=== PATIENT | female | born 1960 | race Caucasian/White ===

== ENCOUNTER 2016-04-15 11:50 | Emergency (ER) | payer MEDICARE ==
[2016-04-15 12:03] VITALS: TEMP 98.6; BMI 35.4
[2016-04-15] MEDS ORDERED: SODIUM CHLORIDE 0.9% 10 ML FLUSH FLUSH PRN (12:05)
[2016-04-15] MEDS ORDERED: NS 1,000 ML IV ONE (12:05)
[2016-04-15] MEDS ORDERED: Albuterol/Ipratropium Neb 3 ML NEB NEB ONE (12:07)
[2016-04-15] MEDS ORDERED: METHYLPREDNISOLONE 125 MG/2 ML VIAL IV ONE (12:07)
--- NOTE | 2016-04-15 12:08 | EDPRACDOC ---
- General Information Chief Complaint: Chest Pain Stated Complaint: CHEST PAIN Time Seen by Provider: 04/15/16 11:57 Information Source: Patient Mode Of Arrival: Ambulance Home Medications: Home Medications Albuterol Sulfate [Proventil, Ventolin] 2.5 mg NEB Q4-6H PRN 04/15/16 Aspirin [Adult Low Dose Aspirin EC] 81 mg PO DAILY 04/15/16 Ciprofloxacin HCl [Cipro] 500 mg PO BID #14 tab 04/15/16 Ipratropium [place] 0.2 mg NEB QID PRN 04/15/16 Lisinopril [Prinivil] 20 mg PO HS 04/15/16 Lorazepam [Ativan] 1 mg PO DAILY PRN 04/15/16 Lovastatin 40 mg PO HS 04/15/16 Prednisone [Deltasone, Orasone] 20 mg PO DAILY #20 tab 04/15/16 Quetiapine Fumarate [Seroquel] 300 mg PO DAILY 04/15/16 Allergies/Adverse Reactions: Allergies Allergy/AdvReac Type Severity Reaction Status Date / Time codeine Allergy Itching Verified 04/15/16 12:03 Penicillins Allergy Unknown Verified 04/15/16 12:03 - History of Present Illness Onset: YEST Exact Onset of Symptoms: Unknown HPI: Pt presents to ED for confusion x 2-3 days, cough, cp. states hx bipolar. Pt answers "i don't know" to the majority of questions. Symptoms began: Gradually Duration: Since Onset Symptoms Currently: Reports: Worsened Altered Quality: Reports: Confusion Altered Severity: Reports: Moderate Associated signs and symptoms: Reports: Chest pain - Treatment Prior to ED Arrival Reported Medications/Treatment [employer] EMS Treatment BLS IV No ED Past Medical History - History Reviewed Yes Nurses notes reviewed and agree except as marked - Patient Medical History Cardiac History: Reports: Hypertension, Hypercholesterolemia Surgical History: Reports: Hysterectomy - Social Medical History Smoking Status: Current status unknown EDM Review of Systems - Review of Systems ROS Unobtainable: Yes Hx Limited due to age/level of understanding of patient Respiratory: Cough Cardiovascular: Chest Pain - Physical Exam Constitutional: Alert, Confused Oriented to: Person Last recorded Vital Signs: Last Vital Signs Temp 98.6 F 04/15/16 11:58 Pulse 108 04/15/16 11:58 Resp 20 04/15/16 11:58 BP 198/99 H 04/15/16 11:58 Pulse Ox 90 L 04/15/16 11:58 Oxygen Pulse Oxygen Saturation 90 O2 Device Oxygen Flow Rate Fraction of Inspired Oxygen ( FIO2) - HEENT Head: Normal ( normocephalic) Eye Exam: Normal (PERRL, EOMI, Sclera white) Oropharynx: Normal (Pharynx:Moist without exudate,Gums-no swelling) Tympanic Membrane: Normal ENT EAC: Normal Nose: No Symptoms Reported (septum midline) Neck: Normal (FROM, trachea at midline) - Respiratory/Cardiovascular Respiratory: Wheezes Cardiovascular: Tachycardia - GI Auscultation: Normal (NABS) Palpation: Normal (Soft,No rebound or guarding, non distended) Tenderness: Non tender - Musculoskeletal Back: Normal (Non-Tender) Extremities: Normal (Normal tone, Pulses 2+ No cyanosis or edema, FROM) - Integumentary Skin: Normal, Warm, Dry Lymphatics: Normal (no adenopathy) - Neurologic Memory Impaired: Short-term Motor Function: Normal (Normal tone, Pulses 2+ No cyanosis or edema, FROM) - Differential Diagnosis Dehydration, Hypoxemia, CVA, Sepsis, UTI, Other (PNA) - Results 04/15/16 12:00 04/15/16 12:00 04/15/16 15:51 Laboratory Results - last 24 hr 04/15/16 04/15/16 04/15/16 12:00 12:00 12:00 WBC 6.2 RBC 4.94 Hgb 14.2 Hct 41.8 MCV 85 MCH 28.8 MCHC 34.0 RDW 13.0 Plt Count 178 MPV 9.6 Neut % (Auto) 74.7 Lymph % (Auto) 15.0 L [place] % (Auto) 9.9 Eos % (Auto) 0.1 Baso % (Auto) 0.3 Absolute Neuts (auto) 4.59 Absolute Lymphs (auto) 0.93 PT INR APTT Puncture Site pH pCO2 pO2 HCO3 Total CO2 Base Excess FiO2 % Specimen Drawn By Sodium 139 Potassium 4.4 Chloride 101 Carbon Dioxide 26 Anion Gap 16 BUN 11 Creatinine 0.60 Estimated GFR (MDRD) > 60 Glucose 105 H Calculated Osmolality 267 L Lactic Acid 0.9 Calcium 9.6 Total Bilirubin 0.6 AST 29 ALT 40 Alkaline Phosphatase 85 Creatine Kinase 96 Troponin I < 0.01 [id number] Pept 52 Total Protein 7.3 Albumin 4.5 Urine Color Urine Clarity Urine pH Ur Specific [place] Urine Protein Urine Glucose (UA) Urine Ketones Urine Occult Blood Urine Nitrite Urine Bilirubin Urine Urobilinogen Ur Leukocyte Esterase Urine RBC Urine WBC Ur Epithelial Cells Urine Bacteria Urine Mucus Urine Opiates Screen Ur Oxycodone Screen Urine Methadone Screen Ur Barbiturates Screen Ur Tricyclics Screen Ur Phencyclidine Scrn Ur Amphetamines Screen U Methamphetamines Scrn Urine MDMA Screen U Benzodiazepines Scrn Urine Cocaine Screen Ur THC Screen 04/15/16 04/15/16 04/15/16 12:00 12:20 12:20 WBC RBC Hgb Hct MCV MCH MCHC RDW Plt Count MPV Neut % (Auto) Lymph % (Auto) [place] % (Auto) Eos % (Auto) Baso % (Auto) Absolute Neuts (auto) Absolute Lymphs (auto) PT 10.8 INR 1.1 APTT 29.1 Puncture Site pH pCO2 pO2 HCO3 Total CO2 Base Excess FiO2 % Specimen Drawn By Sodium Potassium Chloride Carbon Dioxide Anion Gap BUN Creatinine Estimated GFR (MDRD) Glucose Calculated Osmolality Lactic Acid Calcium Total Bilirubin AST ALT Alkaline Phosphatase Creatine Kinase Troponin I [id number] Pept Total Protein Albumin Urine Color Yellow Urine Clarity Clear Urine pH 6.0 Ur Specific [place] 1.010 Urine Protein Neg Urine Glucose (UA) Neg Urine Ketones 1+ H Urine Occult Blood Neg Urine Nitrite Neg Urine Bilirubin Neg Urine Urobilinogen <2.0 Ur Leukocyte Esterase 2+ H Urine RBC 2-5 Urine WBC 10-20 H Ur Epithelial Cells 1+ Urine Bacteria Few Urine Mucus Occ Urine Opiates Screen Neg Ur Oxycodone Screen Neg Urine Methadone Screen Neg Ur Barbiturates Screen Neg Ur Tricyclics Screen Neg Ur Phencyclidine Scrn Neg Ur Amphetamines Screen Neg U Methamphetamines Scrn Neg Urine MDMA Screen Neg U Benzodiazepines Scrn *positive* H Urine Cocaine Screen Neg Ur THC Screen Neg 04/15/16 12:40 WBC RBC Hgb Hct MCV MCH MCHC RDW Plt Count MPV Neut % (Auto) Lymph % (Auto) [place] % (Auto) Eos % (Auto) Baso % (Auto) Absolute Neuts (auto) Absolute Lymphs (auto) PT INR APTT Puncture Site Right radial pH 7.460 H pCO2 39.0 pO2 67.0 L HCO3 27.7 H Total CO2 28.9 H Base Excess 3.7 H FiO2 % 0.21 Specimen Drawn By Belja Sodium Potassium Chloride Carbon Dioxide Anion Gap BUN Creatinine Estimated GFR (MDRD) Glucose Calculated Osmolality Lactic Acid Calcium Total Bilirubin AST ALT Alkaline Phosphatase Creatine Kinase Troponin I [id number] Pept Total Protein Albumin Urine Color Urine Clarity Urine pH Ur Specific [place] Urine Protein Urine Glucose (UA) Urine Ketones Urine Occult Blood Urine Nitrite Urine Bilirubin Urine Urobilinogen Ur Leukocyte Esterase Urine RBC Urine WBC Ur Epithelial Cells Urine Bacteria Urine Mucus Urine Opiates Screen Ur Oxycodone Screen Urine Methadone Screen Ur Barbiturates Screen Ur Tricyclics Screen Ur Phencyclidine Scrn Ur Amphetamines Screen U Methamphetamines Scrn Urine MDMA Screen U Benzodiazepines Scrn Urine Cocaine Screen Ur THC Screen - EKG EKG #1 EKG Time: 12:01 Rate: bpm: 107 [place]: Normal Rhythm: ST Block: None ST: Nonsp - Diagnostic Imaging Head Image interpreted by: Radiologist IMPRESSION: No intracranial mass, hemorrhage, or focal broussard - white compartment lesions/acute appearing infarct. Chest Image interpreted by: Radiologist IMPRESSION: Negative one-view chest x-ray - Additional Information Additional Information: Pt wears O2 at home. Pt discussed with tomasa Dwyer to d/c home. Decision Time to Discharge: 16:12 - Departure Disposition: Home Condition: Stable Final Diagnosis: COPD exacerbation, Hypoxia UTI (urinary tract infection) Qualifiers: Urinary tract infection type: acute cystitis Hematuria presence: without hematuria Qualified Code(s): N30.00 - Acute cystitis without hematuria Altered mental status Qualifiers: Altered mental status type: transient alteration of awareness Qualified Code(s) : R40.4 - Transient alteration of awareness Instructions: Chest Pain (ED), Urinary Tract Infection in Women (ED), COPD ( Chronic Obstructive Pulmonary Disease) (ED), Dysuria Education/Counseling Given To: Patient Education/Counseling Given Regarding: Diagnosis, Treatment, Follow Up Referrals: None,No Provider [NonStaff] - One Week Jean Kulkarni II, MD [Staff Physician] - One Week Prescriptions: New Ciprofloxacin HCl [Cipro] 500 mg PO BID #14 tab Prednisone [Deltasone, Orasone] 20 mg PO DAILY #20 tab No Action Aspirin [Adult Low Dose Aspirin EC] 81 mg PO DAILY Ipratropium [place] 0.2 mg NEB QID PRN PRN Reason: Shortness Of Breath Lovastatin 40 mg PO HS Lisinopril [Prinivil] 20 mg PO HS Albuterol Sulfate [Proventil, Ventolin] 2.5 mg NEB Q4-6H PRN PRN Reason: Shortness Of Breath Lorazepam [Ativan] 1 mg PO DAILY PRN PRN Reason: Anxiety Quetiapine Fumarate [Seroquel] 300 mg PO DAILY Additional Instructions: Increase fluids. Return for worse or different symptoms.
[2016-04-15 12:29] LABS: ALL NEG? NO
[2016-04-15 12:39] LABS: LEUKOCYTES/URINE 2+ (NEGATIVE); NITRITE/URINE NEG (NEGATIVE); URINE OCCULT BLOOD NEG (NEG/TRACE)
[2016-04-15 12:43] LABS: MDMA* NEG (NEGATIVE); METHAMPHETAMINES NEG (NEGATIVE); OXYCODONE NEG (NEGATIVE)
[2016-04-15 12:45] LABS: ABG Draw Site Right Radial; ALLEN'S TEST PASS; BEb 3.7 (+/- 2); TCO2 28.9 MMOL/L (23-27)
[2016-04-15 13:05] LABS: AUTOMATED BASOPHIL 0.3 % (0-2); AUTOMATED EOSINOPHIL 0.1 % (0-5); AUTOMATED MONOCYTE 9.9 % (3-10); AUTOMATED NEUTROPHIL 74.7 % (45-76); MPV 9.6 fL (7.4-10.4)
--- NOTE | 2016-04-15 13:10 | DIRPT ---
CLINICAL DATA: Altered mental status/ confusion for 2 days EXAM: CT HEAD WITHOUT CONTRAST TECHNIQUE: Contiguous axial images were obtained from the base of the skull through the vertex without intravenous contrast. COMPARISON: None. FINDINGS: The ventricles are normal in size and configuration. There is no intracranial mass, hemorrhage, extra-axial fluid collection, or midline shift. The broussard-white compartments are normal. No acute infarct is evident. The bony calvarium appears intact. Mastoid air cells are hypoplastic but clear bilaterally. Visualized orbital regions appear symmetric bilaterally. IMPRESSION: No intracranial mass, hemorrhage, or focal broussard - white compartment lesions/acute appearing infarct. Electronically Signed By: Stevo Mcnulty III, M.D. On: 04/15/2016 13:08
[2016-04-15 13:12] LABS: BLOOD UREA NITROGEN 11 MG/DL (7-17); CALCIUM 9.6 MG/DL (8.4-10.2); CALCULATED OSMOLALITY 267 MOs/Kg (270-290); CHLORIDE 101 mEq/L (98-107); CPK TOTAL WITH POSSIBLE MB 96 IU/L (30-134); GLUCOSE 105 mg/dL (70-99); SODIUM LEVEL 139 mEq/L (137-146); TOTAL PROTEIN 7.3 G/DL (6.3-8.2)
[2016-04-15 13:20] LABS: PARTIAL THROMB. TIME 29.1 SEC (22-35); PT-INR 1.1
--- NOTE | 2016-04-15 13:36 | DIRPT ---
CLINICAL DATA: Sepsis. Confusion for 2-3 days. EXAM: PORTABLE CHEST - 1 VIEW COMPARISON: Two-view chest x-ray 01/26/2009. FINDINGS: The heart size and mediastinal contours are within normal limits. Both lungs are clear. The visualized skeletal structures are unremarkable. IMPRESSION: Negative one-view chest x-ray Electronically Signed By: Augustus Willis M.D. On: 04/15/2016 13:34
[2016-04-15] MEDS ORDERED: CEFTRIAXONE 1 GM in D5W 100 ML IV ONE (13:46)
[2016-04-15 16:33] VITALS: BP 194/93; PULSE 87
== END 2016-04-15 16:47 | disposition home or self-care (01) ==
LOC: ED 11:50
DX: J44.1 Chronic obstructive pulmonary disease with (acute) exacerbation (principal); R09.02 Hypoxemia; N30.00 Acute cystitis without hematuria; R40.4 Transient alteration of awareness; I10 Essential (primary) hypertension; E78.00 Pure hypercholesterolemia, unspecified; Z79.899 Other long term (current) drug therapy
CPT/HCPCS: 36415; 36600; 70450; 71010; 80053; 80307; 81001; 82550; 82803; 83605; 83880; 84484; 85025; 85610; 85730; 87040; 87075; 87077; 87086; 87186; 87205; 93005; 94640; 96361; 96365; 96375; 99285; J0696; J2930; J7060; J7620; 87070